=== PATIENT | female | born 1940 | race Caucasian/White ===

== ENCOUNTER 2022-11-02 19:08 | Emergency (ER) | payer MEDICARE, BC ==
[2022-11-02] MEDS ORDERED: Sodium Chloride 0.9% 10 ML Syringe FLUSH PRN (19:51)
[2022-11-02 20:18] LABS: ANION GAP 6.6 meq/L (7-15)
== END 2022-11-02 21:25 | disposition home or self-care (01) ==
LOC: LL.ED 19:08
DX: A08.4 Viral intestinal infection, unspecified (principal); E78.00 Pure hypercholesterolemia, unspecified; I10 Essential (primary) hypertension; F17.210 Nicotine dependence, cigarettes, uncomplicated; E66.9 Obesity, unspecified; Z68.31 Body mass index [BMI] 31.0-31.9, adult; Z88.8 Allergy status to other drugs, medicaments and biological substances; Z79.82 Long term (current) use of aspirin; Z79.899 Other long term (current) drug therapy
CPT/HCPCS: 36415; 80053; 81001; 83690; 83735; 85025; 87086; 87088; 87186; 99284